=== PATIENT | female | born 1950 | race Caucasian/White ===

== ENCOUNTER → 2018-09-17 | Outpatient (CLI) | payer MEDICARE, OTHER ==
[~2018-09-17] MED LIST: B-12250 MCG; BUDE6HFA INH; ERGO400; LORA2 PO; NASCOBAL1 EACH; TOCO400; ZOLP10 PO
== END | disposition home or self-care (01) ==
LOC: LAB SHORT 10:07 → LAB 10:07
DX: R30.0 Dysuria (principal)
CPT/HCPCS: 87077; 87086; 87186

== ENCOUNTER → 2018-10-08 | Outpatient (CLI) | payer MEDICARE, OTHER ==
[2018-10-08 14:15] LABS: Bilirubin, Urine Neg (Neg); Blood, Urine 4+ (Neg); Glucose Qualitative, Urine Neg (Neg); Ketones, Urine Neg (Neg); Leukocyte Esterase, Urine Neg (Neg); Nitrite, Urine Neg (Neg); Protein, Urine Neg (Neg); Specific Gravity, Urine 1.015 (1.003-1.022); Urobilinogen, Urine NORM (Normal)
[2018-10-08 14:43] LABS: Appearance, Urine Hazy (Clear); Color, Urine Yellow (P-Yellow)
[2018-10-08 14:44] LABS: Squamous Epithelial Cells Mod /hpf (Few)
[2018-10-08 14:45] LABS: Bacteria Rare /hpf; White Blood Cells, Urine Not Seen /hpf (0-5)
[2018-10-10 14:08] LABS: HPV 16 Negative (Negative); HPV 18 Negative (Negative); HPV OTHER HR TYPES Negative (Negative)
== END ==
LOC: LAB SHORT 13:41 → LAB 13:41
PROVIDERS: Obstetrics & Gynecology
DX: R31.9 Hematuria, unspecified (principal); Z91.89 Other specified personal risk factors, not elsewhere classified
CPT/HCPCS: 81001; 87624; G0123

== ENCOUNTER → 2020-01-07 | Outpatient (CLI) | payer MEDICARE, OTHER | END | disposition home or self-care (01) | LOC: LAB SHORT 14:10 → PLD 14:10 | DX: N87.1 Moderate cervical dysplasia (principal) | CPT/HCPCS: 88305 ==

== ENCOUNTER 2024-11-03 03:49 | Day surgery (SDC) | payer MEDICARE, OTHER ==
[~2024-11-03 03:49] MED LIST changes: +ZOLEDRONIC ACID/MANNITOL-WATER 100 ML IV SCH
[2024-11-03 11:12] VITALS: BP 144/51
[2024-11-03] MEDS ORDERED: LOSA50 PO (11:35)
[2024-11-03] MEDS ORDERED: ALBU90OI INH (11:35)
[2024-11-03] MEDS ORDERED: METO50ER PO (11:36)
[2024-11-03] MEDS ORDERED: Voltaren100 GM TOP (11:36)
== END 2024-11-03 11:50 | disposition home or self-care (01) ==
LOC: ATC 03:49
DX: M81.0 Age-related osteoporosis without current pathological fracture (principal); J44.9 Chronic obstructive pulmonary disease, unspecified; E78.5 Hyperlipidemia, unspecified; I73.9 Peripheral vascular disease, unspecified; F17.210 Nicotine dependence, cigarettes, uncomplicated; Z79.899 Other long term (current) drug therapy; Z88.6 Allergy status to analgesic agent; Z88.2 Allergy status to sulfonamides; Z88.8 Allergy status to other drugs, medicaments and biological substances
CPT/HCPCS: 96374; J3489

== ENCOUNTER → 2025-05-20 | Outpatient (CLI) | payer MEDICARE, OTHER ==
[~2025-05-20] MED LIST changes: +ALBU90OI INH; +LOSA50 PO; +METO50ER PO; +Voltaren100 GM TOP; -ZOLEDRONIC ACID/MANNITOL-WATER 100 ML IV SCH
== END ==
LOC: LAB SHORT 10:30 → LAB 10:30 → LAB SHORT 05-21 10:28
DX: L08.9 Local infection of the skin and subcutaneous tissue, unspecified (principal)
CPT/HCPCS: 87070; 87205